=== PATIENT | female | born 1975 | race American Indian/Alaskan Native ===

== ENCOUNTER 2018-10-30 11:02 | Emergency (ER) | payer OTHER ==
[2018-10-30 11:09] VITALS: BP 132/93
[2018-10-30] MEDS ORDERED: IBUPROFEN PO ONE (11:16)
--- NOTE | 2018-10-30 11:19 | Emergency Department Report ---
ED Fall HPI - General Chief Complaint: Extremity Injury, Upper Stated Complaint: FELL RT HAND INJURY Time Seen by Provider: 10/30/18 11:13 Source: patient Mode of arrival: Ambulatory - History of Present Illness Initial Comments: Ms. 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 Yesterday during her shift, she fell on outstretched hand after slipping from a chair. She has moderately severe right wrist and forearm pain. She treated the injury with ice. No other injury. Denies significant shoulder or elbow pain. Past medical history includes depression. Medication: Wellbutrin. MD Complaint: fall -: days(s) (1) Fall From: chair Place Fall Occurred: work Loss of Consciousness: none Prolonged Down Time?: no Symptoms Prior to Fall: none Location - Extremities: Right: Forearm Severity: moderate Quality: dull, aching Context: tripped/slipped Associated Symptoms: denies - Related Data Previous Rx's Medication Instructions Recorded Last Taken Type HYDROcodone/ACETAMINOPHEN [[place] 1 each PO Q6H #12 tablet 06/23/18 Unknown Rx 7.5-325 Tablet] Ibuprofen 400 mg PO QID 5 Days #20 tablet 10/30/18 Unknown Rx Allergies Allergy/AdvReac Type Severity Reaction Status Date / Time acetaminophen [From Lortab] Allergy Vomiting Verified 10/30/18 11:05 hydrocodone [From Lortab] Allergy Vomiting Verified 10/30/18 11:05 iodine Allergy Itching Verified 10/30/18 11:05 latex Allergy Unknown Verified 10/30/18 11:05 oxycodone Allergy Vomiting Verified 10/30/18 11:05 shellfish derived Allergy Unknown Verified 10/30/18 11:05 codeine AdvReac Itching Verified 10/30/18 11:05 ED Review of Systems ROS: Stated complaint: FELL RT HAND INJURY Other details as noted in HPI Constitutional: denies: fever, malaise Respiratory: denies: cough Cardiovascular: denies: chest pain ED Past Medical Hx - Past Medical History Previous Medical History?: Yes Hx Arthritis: Yes Additional medical history: back pain, depression - Surgical History Additional Surgical History: back surgery - Social History Smoking Status: Never Smoker Substance Use Type: None - Medications Home Medications: Home Medications Medication Instructions Recorded Confirmed Last Taken Type HYDROcodone/ACETAMINOPHEN [[place] 1 each PO Q6H #12 tablet 06/23/18 Unknown Rx 7.5-325 Tablet] Ibuprofen 400 mg PO QID 5 Days #20 tablet 10/30/18 Unknown Rx ED Physical Exam - General Limitations: No Limitations General appearance: alert, in no apparent distress - Head Head exam: Present: atraumatic, normocephalic - Eye Eye exam: Present: normal appearance - Respiratory Respiratory exam: Absent: respiratory distress - Expanded Upper Extremity Exam Left Shoulder Exam: Present: normal inspection, full ROM Elbow exam: Present: normal inspection, full ROM. Absent: tenderness Forearm Wrist exam: Present: tenderness, swelling. Absent: abrasion, lacerati on, deformity, crepidus Hand Wrist exam: Present: normal inspection, full ROM. Absent: tenderness ED Course Vital Signs 10/30/18 11:05 Temperature 98.7 F Pulse Rate 104 H Blood Pressure 132/93 O2 Sat by Pulse 96 Oximetry ED Medical Decision Making - Radiology Data Radiology results: report reviewed, image reviewed No acute process - Medical Decision Making I reviewed personally reviewed 3 views of the right wrist: No fracture, no carpal bone dislocation or fracture, mild soft tissue swelling Patient was given a wrist brace, recommended scheduled dosing of ibuprofen. Prescription for ibuprofen provided. Referral to orthopedic surgeon recommended. Critical care attestation.: If time is entered above; I have spent that time in minutes in the direct care of this critically ill patient, excluding procedure time. ED Disposition Clinical Impression: Right wrist sprain Disposition: DC-01 TO HOME OR SELFCARE Is pt being admited?: No Does the pt Need Aspirin: No Condition: Stable Instructions: Wrist Sprain (ED) Additional Instructions: Please use a wrist brace at all times. Please see orthopedic surgeon within 1 week. Prescriptions: Ibuprofen 400 mg PO QID 5 Days #20 tablet Referrals: LANRE MIGUEL MD [Staff Physician] - 7-10 days Forms: Work/School Release Form(ED)
--- NOTE | 2018-10-30 11:56 | XRay Report ---
RIGHT WRIST, 4 VIEWS: History: Pain and swelling. Routine views demonstrate the carpal bones to be well mineralized with well preserved bony mineralization and interosseous joint spaces. The carpal and adjacent articular bones have normal contours. The surrounding soft tissues are unremarkable. IMPRESSION: Unremarkable right wrist.
== END 2018-10-30 13:04 | disposition home or self-care (01) ==
LOC: ED 11:02
DX: S63.501A Unspecified sprain of right wrist, initial encounter (principal); W17.89XA Other fall from one level to another, initial encounter; Y93.89 Activity, other specified; Y99.8 Other external cause status; Y92.69 Other specified industrial and construction area as the place of occurrence of the external cause
CPT/HCPCS: 29260